=== PATIENT | male | born 1995 | race Caucasian/White ===

== ENCOUNTER 2020-04-23 09:58 | Emergency (ER) | payer OTHER, SELFPAY ==
--- NOTE | ~2020-04-23 | XR_ITS ---
EXAMINATION: XR wrist LT min 3V DATE: 04/23/2020 10:22 INDICATION: Left wrist pain. TECHNIQUE: 4 views of left wrist were obtained. COMPARISON: None. FINDINGS: Bone alignment is normal. No fracture. There is a 4 mm nonaggressive lytic lesion in distal scaphoid, likely a benign fibrous lesion. Joint spaces are well maintained. IMPRESSION: 1. No fracture. Reviewed, dictated and finalized at location A. HEN HELP HANDYMAN IMPRESSION: 1. No fracture.
--- NOTE | ~2020-04-23 | XR_ITS ---
EXAMINATION: XR forearm LT 2V DATE: 04/23/2020 10:22 INDICATION: Left wrist pain. TECHNIQUE: 2 views of left forearm were obtained. COMPARISON: None. FINDINGS: Bone alignment is normal. No fracture. Joint spaces are well maintained. There is no elbow joint effusion. IMPRESSION: 1. No fracture. Reviewed, dictated and finalized at location A. CIATE SPA DIRECTOR IMPRESSION: 1. No fracture.
--- NOTE | 2020-04-23 10:03 | ED.UPPEXIN ---
HPI - Extremity Injury (Upper) General Chief Complaint: Extremity Injury, Upper Stated Complaint: lt arm injury Time Seen by Provider: 04/23/20 10:03 Source: patient and RN notes reviewed History of Present Illness HPI narrative: Patient is a 24-year-old male who presents the urgent care with complaints of left forearm/wrist pain. Patient states that he was skiing at [place] yesterday and fell on the left arm. Patient has been wearing a friend's sling to the left arm for comfort. States that he has been taking Advil for the pain. No other acute complaints or injuries. No acute distress noted. Patient aware of the plan of care. Some parts of this dictation were generated by voice recognition software and may contain typographical and/or grammatical inaccuracies. Related Data Allergies Allergy/AdvReac Type Severity Reaction Status Date / Time CATS Allergy Unknown Uncoded 07/07/19 11:30 GRASS Allergy Unknown Uncoded 07/07/19 11:30 MOLD Allergy Unknown Uncoded 07/07/19 11:30 Review of Systems Review of Systems: Narrative: CONSTITUTIONAL: Denies fever, chills, or sweats. EYES: Denies visual changes, redness, or discharge. ENT: Denies rhinorrhea, congestion, sore throat, or otalgia. CARDIOVASCULAR: Denies chest pain, palpitations, or edema. RESPIRATORY: Denies cough or dyspnea. GASTROINTESTINAL: Denies abdominal pain, nausea, vomiting, or diarrhea. GENITOURINARY: Denies dysuria or hematuria. SKIN: Denies rash or itching. MUSCULOSKELETAL: Reports of left arm pain extending from the wrist to the elbow NEUROLOGIC: Denies headache, numbness, or weakness. All other systems reviewed are negative, except as documented in HPI. [facility] Past Medical History Medical History (Updated 04/23/20 @ 10:35 by MANFRED Howell) Environmental allergies Seasonal asthma Comments At the time of my signature, I reviewed and agree with the nursing past medical, surgical, social, and family history. There is no relevant family history pertinent to the patient complaint. Exam Narrative: Exam Narrative: GENERAL: This is a well-nourished, well-developed patient, in no apparent distress. HEAD: normocephalic, atraumatic. EYES: PERRL. Sclera clear/white. Vision is grossly intact. EARS: External ears normal NOSE: External nose normal with no obvious nasal discharge, nares without redness, no rhinorrhea. THROAT: Mucous membranes moist NECK: Neck supple SKIN: warm, intact with no suspicious lesions or rash, good texture and turgor. NEURO: awake, alert, and oriented to person, place and time. There were no obvious focal neurologic abnormalities. EXTREMITIES: Mild edema noted distal to the left elbow. Otherwise no obvious left upper extremity deformity/ecchymosis/erythema. Range of motion not tested due to pain. Positive strong left radial pulse with capillary refill less than 2 seconds. Course Vital Signs Vital signs: Vital Signs Temperature 99.3 F 04/23/20 10:09 Pulse Rate 97 04/23/20 10:09 Respiratory Rate 20 04/23/20 10:09 Blood Pressure 142/81 H 04/23/20 10:09 Pulse Oximetry 100 04/23/20 10:09 Temperature 99.3 F 04/23/20 10:09 Pulse Rate 97 04/23/20 10:09 Respiratory Rate 20 04/23/20 10:09 Blood Pressure 142/81 H 04/23/20 10:09 Pulse Oximetry 100 04/23/20 10:09 Reviewed-patient is informed that they may have pre-hypertension or hypertension based on a blood pressure reading in the department. I recommend the patient call the primary care provider listed on their discharge instructions or a physician of their choice this week to arrange follow-up for further evaluation of possible pre-hypertension or hypertension. MDM - Extremity Injury (Upper) MDM Narrative Medical decision making narrative: Reviewed x-ray results with patient. He is aware of x-ray was negative for any form knee or fracture. Advised the patient to continue slow range of motion activities to avoid the elbow and shoulder becoming stiff. St
[2020-04-23 10:09] VITALS: BP 142/81; PULSE 97; RESP 20; TEMP 37.4; O2SAT 100
== END 2020-04-23 10:47 | disposition home or self-care (01) ==
PROVIDERS: Emergency Provider Nurse Practitioner Family
DX: M79.632 Pain in left forearm (principal)
CPT/HCPCS: 73090; 73110; 99213; G0463

== ENCOUNTER 2020-11-14 10:06 | Emergency (ER) | payer OTHER, SELFPAY ==
[2020-11-14 10:10] VITALS: BP 134/93; PULSE 66; RESP 12; TEMP 36.9; O2SAT 100
--- NOTE | 2020-11-14 10:20 | ED.ABDPAIN ---
HPI - Abdominal Pain General Chief Complaint: Abdominal Pain Stated Complaint: abdominal pain Time Seen by Provider: 11/14/20 10:45 Source: patient and RN notes reviewed Mode of arrival: ambulatory Limitations: no limitations History of Present Illness HPI narrative: 24-year-old male with history of asthma and prior appendectomy presents with concern for 2-day history of periumbilical abdominal pain. Reports that sharp constant pain that started when he woke up yesterday morning. He denies vomiting, nausea. Reports one episode of diarrhea today. Denies any prior constipation or change in bowel habits. Reports decreased appetite, has not had desire to eat or drink since yesterday. He has been vaccinated for Covid. He denies any known sick contacts. He denies any injury or trauma. He reports he vapes occasionally. He does not smoke cigarettes. He denies any fever, body aches, chills, sweats. Reports general malaise. MD elicited complaint: abdominal pain Related Data Allergies Allergy/AdvReac Type Severity Reaction Status Date / Time CATS Allergy Mild Unknown Uncoded 08/15/20 15:00 GRASS Allergy Mild Unknown Uncoded 08/15/20 15:00 MOLD Allergy Mild Unknown Uncoded 08/15/20 15:00 Review of Systems Review of Systems: CONSTITUTIONAL: Reports malaise. Denies chills, sweats, or fever. ENT: Denies rhinorrhea, congestion, sinus pain, otalgia or sore throat. CARDIOVASCULAR: Denies chest pain, palpitations, or edema. RESPIRATORY: Denies cough or dyspnea. GASTROINTESTINAL: Reports periumbilical abdominal pain, anorexia, one episode of diarrhea. Denies nausea, vomiting, constipation, bloody, or mucous stools. GENITOURINARY: Denies dysuria or hematuria. Denies testicular redness, swelling, pain SKIN: Denies bruising, redness MUSCULOSKELETAL: Denies back pain myalgia. NEUROLOGIC: Denies headache. All systems reviewed & are unremarkable except as noted in HPI and below PMFSH Past Medical History Medical History Environmental allergies Seasonal asthma Surgical History Surgical History No pertinent past surgical history Family History Family History Other Asthma Social History Social History Smoking status: Never smoker Alcohol intake: current Substance use: never Substance use type: does not use Gender identity (if verbalized by the patient): Male Comments At time of signature, agree with nursing past medical, surgical, social and family history. There is no relevant family history pertinent to the presenting complaint Exam Narrative: GENERAL: Well-appearing, well-nourished, and in no acute distress. HEAD: Normocephalic, atraumatic. EYES: PERRLA, conjunctivae clear ENT: Mucous membranes moist. NECK: Supple. No lymphadenopathy CHEST: Speaks in full sentences. Clear to auscultation pain, breath sounds equal. No respiratory distress. HEART: Regular rate and rhythm. ABDOMEN: Flat, nondistended. Periumbilical tenderness, slightly firm. No guarding, rebound tenderness, or rigid. No pulsatille masses. Bowel sounds present in all four quadrants. No organomegaly. Negative Saravia?s sign. No Supra public tenderness or distension. No scars or surface trauma. Mild erythema noted to abdomen SKIN: Warm, dry, no rash. NEURO: Alert and oriented x3. PSYCH: Normal mood and affect Course Course Emergency Course: Patient is aware of, understands and agrees to be transferred to the emergency department. Patient agrees to proceed directly to the emergency department. Portions of this record may have been created with voice recognition software Vital Signs Vital signs: Reviewed. Due to patient's condition, did not discuss prehypertension Transfer Transfered to: [facility]: [facility]
== END 2020-11-14 11:10 | disposition short-term general hospital (02) ==
PROVIDERS: Emergency Provider Nurse Practitioner; PCP Physician Assistant
DX: R10.33 Periumbilical pain (principal); J45.909 Unspecified asthma, uncomplicated; J45.998 Other asthma
CPT/HCPCS: 99212; G0463

== ENCOUNTER 2020-11-14 11:19 | Emergency (ER) | payer OTHER, SELFPAY ==
--- NOTE | ~2020-11-14 | CT_ITS ---
EXAMINATION: CT abdomen pelvis w con INDICATION: Abdominal pain and diarrhea TECHNIQUE: Computed tomographic images of the abdomen and pelvis were obtained after the administrati on of 100 cc of Omnipaque 350 intravenous contrast. The dose-length product (DLP) was 340.25 mGy-cm. Automated exposure control and iterative reconstruction technique were employed. COMPARISON: 10/26/2012 FINDINGS: The lung bases are clear. The heart size is normal. The liver, spleen, pancreas, gallbladde r, and adrenal glands are normal. The kidneys are unremarkable. No pathologically enlarged abdominal or pelvic lymph nodes are identified. Right lower quadrant surgical change likely reflects prior appe ndectomy. There is no free intraperitoneal gas or evidence of bowel obstruction. There is mild lumbar spondylosis. IMPRESSION: 1. No CT correlate for the patient's symptoms. Reviewed, dictated and finalized at location A.
[2020-11-14 11:32] VITALS: BP 144/79; PULSE 65; RESP 16; TEMP 37.1; O2SAT 100
[2020-11-14 12:49] LABS: Basophils Percent Auto 0.6 % (0.2-1.2); Eosinophils Absolute Auto 0.3 K/mm3 (0-0.3); Eosinophils Percent Auto 7.1 % (0-4.4); Hematocrit 49.8 % (42.0-52.0); Hemoglobin 16.8 g/dL (14.0-18.0); Immature Granulocyte Absolute 0.01 K/mm3 (0.00-0.031); Immature Granulocyte Percent A 0.2 % (0-0.5); Lymphocytes Absolute Auto 1.34 K/mm3 (0.9-3.2); Lymphocytes Percent Auto 28.2 % (18.3-44.2); Mean Corpuscular HGB Conc 33.7 g/dl (32-36); Mean Corpuscular Hemoglobin 30.3 pg (26-34); Mean Corpuscular Volume 89.7 fl (80-100); Mean Platelet Volume 11.4 fl (7.4-10.4); Monocytes Absolute Auto 0.3 K/mm3 (0.1-0.6); Monocytes Percent Auto 6.5 % (2.6-8.5); Neutrophils Absolute Auto 2.7 K/mm3 (1.3-6.7); Neutrophils Percent Auto 57.4 % (45.5-73.1); Platelet Count Result 234 k/mm3 (150-375); Red Blood Count 5.55 M/mm3 (4.6-6.20); Red Cell Distribution Width 12.6 % (11.5-14.5); White Blood Count 4.8 K/mm3 (4.5-10.0)
[2020-11-14 12:53] LABS: Add Urine Microscopic? NO; Appearance Urine Clear (Clear); Bilirubin Urine Negative (Negative); Blood Urine Negative (Negative); Color Urine Straw (Yellow); Glucose Urine UA Negative (Negative); Ketones Urine Negative (Negative); Leukocyte Esterase Ur Negative LEU/UL (Negative); Nitrate Urine Negative (Negative); Protein Urine Negative (Negative); Urobilinogen Urine Negative mg/dL (<2.0)
--- NOTE | 2020-11-14 12:56 | ED.GENADULT ---
HPI - General Adult General Chief complaint: Abdominal Pain Stated complaint: abd pain Time Seen by Provider: 11/14/20 12:06 Source: patient History of Present Illness HPI narrative: Patient is a 24 y/o male complaining of abdominal pain starting yesterday. He describes his pain as aching and it's located in epigastric area with no radiation. He rates his pain as 9/10. There is no alleviating or exacerbating factor. He has some diarrhea, but no vomiting. He has no fever, chills or cough. He states that his roommate is has COVID symptoms. He states that he is vaccinated for COVID. Related Data Allergies Allergy/AdvReac Type Severity Reaction Status Date / Time CATS Allergy Mild Unknown Uncoded 11/14/20 11:47 GRASS Allergy Mild Unknown Uncoded 11/14/20 11:47 MOLD Allergy Mild Unknown Uncoded 11/14/20 11:48 Review of Systems Constitutional: Constitutional: Denies chills, Denies fever(s), Denies headache(s) and Denies weakness Eyes: Eyes: Denies blurry vision ENT: Denies headache(s) and Denies neck pain Cardiovascular: Cardiovascular: Denies chest pain and Denies dyspnea Respiratory: Respiratory: Denies cough and Denies dyspnea Gastrointestinal: Gastrointestinal: Reports abdominal pain, Reports diarrhea, Denies nausea and Denies vomiting Genitourinary: Genitourinary: Denies hematuria and Denies dysuria Musculoskeletal: Musculoskeletal: Denies back pain and Denies neck pain Neurologic: Denies headache(s) and Denies weakness PMFSH Past Medical History Medical History Environmental allergies Seasonal asthma Surgical History Surgical History No pertinent past surgical history Family History Family History Other Asthma Social History Social History Smoking status: Never smoker Alcohol intake: current Substance use: never Substance use type: does not use Gender identity (if verbalized by the patient): Male Exam Const: General: no acute distress and well developed Orientation/consciousness: oriented to person, oriented to place, oriented to time and patient oriented x3 HENMT: Head: normocephalic Ears: external ears normal General nose exam: Normal external nose present Eyes: General: appearance normal, both eyes and all related structures Conjunctivae: conjunctivae normal Neck: Neck: normal visual inspection and full ROM Chest: Chest palpation & inspection: normal inspection of the chest and no tenderness Resp: Effort & Inspection: normal respiratory effort Auscultation: clear to auscultation bilaterally Cardio: Rate: regular rate Rhythm: regular rhythm GI: GI Palp: No abdominal tenderness and Yes Soft to palpation Skin: General skin exam: normal color and turgor normal Neuro: General: oriented to person, oriented to place, oriented to time and patient oriented x3 Cognition (Neuro): normal cognition Extrem: General: normal to inspection, full ROM and no pedal edema Psych: Appearance: grossly normal Mental Status: mental status grossly normal Affect: normal affect Course Vital Signs Vital signs: Vital Signs Temperature 37.1 C 11/14/20 11:32 Pulse Rate 65 11/14/20 11:32 Respiratory Rate 16 11/14/20 11:32 Blood Pressure 144/79 H 11/14/20 11:32 Pulse Oximetry 100 11/14/20 11:32 Temperature 37.1 C 11/14/20 11:32 Pulse Rate 68 11/14/20 15:20 Respiratory Rate 15 11/14/20 15:20 Blood Pressure 116/72 11/14/20 15:20 Pulse Oximetry 100 11/14/20 15:20 Medical Decision Making Vital Signs Vital Signs: Vital Signs Temperature 37.1 C 11/14/20 11:32 Pulse Rate 65 11/14/20 11:32 Respiratory Rate 16 11/14/20 11:32 Blood Pressure 144/79 H 11/14/20 11:32 Pulse Oximetry 100 11/14/20 11:32 Temperature 37.1 C 11/14/20 11:32
[2020-11-14] MEDS: SODIUM CHLORIDE 0.9% IV 1,000 ML 999 ML IV CONT (13:18)
[2020-11-14] MEDS: BELLADONNA ALK/PHENOB ELIX 10 ML, MAG HYDROX/ALUMINUM HYD/SIMETH 30 ML, LIDOCAINE HCL 2... PO (13:19)
[2020-11-14 13:55] LABS: EDCOVIDSCREEN Negative (Negative)
[2020-11-14 14:14] LABS: Estimated CRCL calculation 99 ml/min; Estimated Glomerular Filt Rate > 60
[2020-11-14 14:15] LABS: Alanine Aminotransferase 41 U/L (4-50); Alkaline Phosphatase 72 U/L (38-126); Anion Gap 9 mmol/L (8-16); Aspartate Amino Transferase 48 U/L (17-59); Bilirubin,Total 1.1 mg/dL (0.2-1.3); Blood Urea Nitrogen 10 mg/dL (9-20); Calcium 9.6 mg/dL (8.4-10.2); Carbon Dioxide 28 mmol/L (22-30); Chloride 104 mmol/L (98-107); Estimated CRCL calculation 111 ml/min; Estimated Glomerular Filt Rate > 60; Glucose 87 mg/dL (65-110); Lipase 45 U/L (23-300); Potassium 4.2 mmol/L (3.4-5.0); Sodium 141 mmol/L (137-145)
[2020-11-14 15:20] VITALS: BP 116/72; PULSE 68; RESP 15; O2SAT 100
[2020-11-14 17:03] VITALS: BP 127/86; PULSE 66; RESP 16; O2SAT 100
== END 2020-11-14 17:05 | disposition home or self-care (01) ==
PROVIDERS: Emergency Medicine; Emergency Provider Emergency Medicine; PCP Physician Assistant
DX: K52.9 Noninfective gastroenteritis and colitis, unspecified (principal); Z20.822 Contact with and (suspected) exposure to COVID-19; Z87.09 Personal history of other diseases of the respiratory system
CPT/HCPCS: 36415; 74177; 80053; 81003; 83690; 85025; 87426; 96360; 96361; 99284; A9270; C9803; J7030; Q9967

== ENCOUNTER 2020-12-12 16:11 | Emergency (ER) | payer OTHER, SELFPAY ==
[2020-12-12 16:20] VITALS: BP 121/80; PULSE 93; RESP 16; TEMP 36.1; O2SAT 98
--- NOTE | 2020-12-12 16:20 | ED.EAR ---
HPI - Ear Problem General Chief complaint: Ear Stated complaint: clogged ears Time Seen by Provider: 12/12/20 16:20 History of Present Illness HPI Narrative: 25-year-old male presents to the [facility] with decreased hearing in his left ear. States he normally gets cerumen impactions every year this time a year. Normally has to have his ears cleaned out. No treatment prior to arrival. MD Complaint: decreased hearing (left ear) Related Data Allergies Allergy/AdvReac Type Severity Reaction Status Date / Time CATS Allergy Mild Unknown Uncoded 11/14/20 11:47 GRASS Allergy Mild Unknown Uncoded 11/14/20 11:47 MOLD Allergy Mild Unknown Uncoded 11/14/20 11:48 Review of Systems Review of Systems: All systems reviewed & are unremarkable except as noted in HPI and below Constitutional: Constitutional: Reports no additional constitutional complaints, Denies chills and Denies fever(s) Eyes: Eyes: Reports no additional eye complaints ENT: Reports as per HPI Cardiovascular: Cardiovascular: Reports no additional cardiovascular complaints Respiratory: Respiratory: Reports no additional respiratory complaints Gastrointestinal: Gastrointestinal: Reports no additional gastrointestinal complaints Genitourinary: Genitourinary: Reports no additional male genitourinary complaints Musculoskeletal: Musculoskeletal: Reports no additional musculoskeletal complaints Integumentary/Breasts: Skin/Breast: Reports system reviewed and no additional complaints, except as docu Neurologic: Reports system reviewed and no additional complaints, except as documented Psychiatric: Psychiatric: Reports no additional psychiatric complaints Allergic/Immunologic: Allergic/Immunologic: Reports no additional allergic/immunologic complaints [facility] Past Medical History Medical History Environmental allergies Seasonal asthma Surgical History Surgical History No pertinent past surgical history Family History Family History Other Asthma Social History Social History Smoking status: Never smoker Alcohol intake: current Substance use: never Substance use type: does not use Gender identity (if verbalized by the patient): Male Comments At the time of my signature, I reviewed and agree with the nursing past medical, surgical, social, and family history. There is no relevant family history pertinent to the patient complaint. Exam Const: General: healthy appearing, no acute distress and alert Nutritional Appearance: well nourished Orientation/consciousness: patient oriented x3 Limitations: no limitations HENMT: Head: normal to inspection Ears: external ears normal and Abnormal EAC present cerumen impaction bilateral; no EA tenderness and no otic discharge General nose exam: Normal external nose present Face and sinus: normal facial exam Mouth: Yes Normal oral and palatal mucosa present Throat: posterior oropharynx normal Eyes: Pupils: Equal, round and reactive pupils present Neck: Neck: normal visual inspection, no lymphadenopathy and no meningeal signs Chest: Chest palpation & inspection: normal inspection of the chest Resp: Effort & Inspection: normal respiratory effort Auscultation: clear to auscultation bilaterally Cardio: Rate: regular rate Rhythm: regular rhythm Back/Spine/Pelvis: Back: no CVA tenderness Skin: General skin exam: normal color Wounds: no wounds Neuro: General: patient oriented x3, moves all extremities, no meningeal signs and no focal motor deficits Speech: normal speech Gait exam (Neuro): Normal gait present Extrem: General: normal to inspection Psych: Appearance: grossly normal and well kempt Mental Status: mental status grossly normal Affect: normal affect Attitude: cooperative Thought content: Yes Normal
== END 2020-12-12 16:49 | disposition home or self-care (01) ==
PROVIDERS: Emergency Provider Nurse Practitioner; PCP Physician Assistant
DX: H61.23 Impacted cerumen, bilateral (principal); J45.909 Unspecified asthma, uncomplicated
CPT/HCPCS: 69210; 99213; G0463